=== PATIENT | male | born 1985 | race Caucasian/White ===

== ENCOUNTER 2019-12-10 20:21 | Emergency (ER) | payer MEDICAID ==
[~2019-12-10] VITALS: Ht 180.3 cm; Wt 195.0 kg
[2019-12-10 20:25] VITALS: BP 152/99
--- NOTE | 2019-12-10 20:48 | NUR ---
PT AMBULATED TO BED 07 WITH STEADY GAIT.
--- NOTE | 2019-12-10 21:00 | NUR ---
34 YEAR OLD MALE COMPLAINS OF CHEST PAIN THAT RADIATES TO LEFT ARM X 2 DAYS. PT STATES HE ALSO HAS SHORTNESS OF BREATHE. PT COMPLAINS OF NAUSEA, VOMITTING, AND DIARRHEA IN THE MORNING BUT DOES NOT HAVE THIS ISSUE CURRENTLY. PT AOX4, BREATHING EVEN AND UNLABORED, SKIN WARM AND DRY. BED IN LOWEST POSITION, LOCKED, BED RAIL UPX1. PMH - HIV ALLERGIES - NKA
--- NOTE | 2019-12-10 21:27 | NUR ---
Dr. Parker examining patient.
--- NOTE | 2019-12-10 21:45 | NUR ---
Patient discharged by Dr Parker. Written and verbal after care instructions about gastroesophageal reflux disease given and explained. Patient alert, oriented and verbalized understanding of instructions. Ambulatory with steady gait. All questions addressed prior to discharge. ID band removed. Patient advised to follow up with PMD. Rx of esomprazole strontium given. Patient educated on indication of medication including possible reaction and side effects. Opportunity to ask questions provided and answered.
[2019-12-10 21:46] VITALS: BP 152/99
== END 2019-12-10 21:45 | disposition home or self-care (01) ==
LOC: MED 20:21
DX: N39.0 Urinary tract infection, site not specified (principal); Z98.890 Other specified postprocedural states; Z91.040 Latex allergy status; Z90.49 Acquired absence of other specified parts of digestive tract
CPT/HCPCS: 93005; 99283; 99284

== ENCOUNTER 2021-06-16 16:20 | Emergency (ER) | payer MEDICAID ==
[~2021-06-16] VITALS: Ht 180.3 cm; Wt 173.7 kg
[2021-06-16 16:29] VITALS: BP 149/99
--- NOTE | 2021-06-16 19:38 | NUR ---
PATIENT LEFT WITHOUT BEING SEEN BY DR. MONREAL. NO FURTHER CARE PROVIDED FOR PATIENT.
--- NOTE | 2021-06-16 19:44 | NUR ---
1936 - PT LEFT SANGEETA
== END 2021-06-16 19:38 | disposition left against medical advice (07) ==
LOC: MED 16:20
DX: N48.89 Other specified disorders of penis (principal); Z53.21 Procedure and treatment not carried out due to patient leaving prior to being seen by health care provider
CPT/HCPCS: 99283